=== PATIENT | male | born 1980 ===

== ENCOUNTER 2019-12-11 05:08 | Day surgery (SDC) | payer OTHER ==
[2019-12-11] MEDS ORDERED: PERCOCET 5-3251 EACH PO (08:11)
[2019-12-11] MEDS ORDERED: RECTICARE30 GM TOP (08:11)
== END 2019-12-11 14:05 | disposition home or self-care (01) ==
LOC: CIR.AMB 05:08 → ADM 11:15 → CIR.AMB 11:15
PROVIDERS: ATTEND Surgery
DX: K60.3 Anal fistula (principal)